=== PATIENT | female | born 1995 | race Caucasian/White ===

== ENCOUNTER 2018-07-16 23:05 | Emergency (ER) | payer MEDICAID, OTHER ==
[~2018-07-16] VITALS: Ht 157.5 cm; Wt 51.7 kg
[~2018-07-16 23:05] MED LIST: BENZ56AE TP; CLIN-62 PO; CLIN300C3 PO; Ibuprofen PO; PREN-115 PO; PREN1TAB14 PO
--- NOTE | 2018-07-16 23:45 | ED Abdominal Pain ---
General Chief Complaint: Abdominal/GI Problems Stated Complaint: PELVIC PAIN Source of Information: Patient Exam Limitations: No Limitations History of Present Illness Date Seen by Provider: Jul 16, 2018 Time Seen by Provider: 23:24 Initial Comments The patient presents to the ER by private conveyance with chief complaint that for the past couple weeks she's had progressively worsening discomfort in her right inguinal region with a little bulge worse when she lifts. Her massage therapist told her that she thought it might be a hernia and so she got to get it checked out. She says only been minimally irritating until tonight was getting bad enough pain that she decided to come get it checked out at the ER. She's having normal bowel movements had one earlier today. No fevers chills cough shortness of breath abdominal pain otherwise nausea vomiting or diarrhea. She's had STD checks about an 4 months ago that were all negative at [facility]. She is having no dysuria or dyspareunia. She is not up-to-date on her Pap smear. No significant medical or surgical history except for tubal ligation. Allergies and Home Medications Allergies Coded Allergies: No Known Drug Allergies (Unverified , 05/17/13) Home Medications Clindamycin Hcl 300 Mg Capsule, 1 EACH PO QID Prescribed by: HARITHA REYNA on 09/04/142100 Vits W-Ca,Fe,Fa(<1MG) 1 Each Tablet, 1 EACH PO DAILY, (Reported) Patient Home Medication List Home Medication List Reviewed: Yes Review of Systems Review of Systems Constitutional: No chills, No diaphoresis EENTM: No Blurred Vision, No Double Vision Respiratory: Denies Cough, Denies Shortness of Air Cardiovascular: Denies Chest Pain, Denies Edema Gastrointestinal: Denies Constipated, Denies Diarrhea, Denies Nausea, Denies Vomiting Genitourinary: Denies Discharge, Denies Drainage Musculoskeletal: No back pain, No joint pain Skin: No pruritus Past Nwhbqka-Jeusjt-Eiwnop Hx Patient Social History Alcohol Use: Denies Use Recreational Drug Use: No Smoking Status: Current Everyday Smoker Type Used: Cigarettes 2nd Hand Smoke Exposure: Yes Recent Foreign Travel: No Contact w/Someone Who Travel: No Recent Hopitalizations: No Physical Abuse: No Sexual Abuse: No Mistreated: No Fear: No Immunizations Up To Date Tetanus Booster (TDap): More than 5yrs Date of Influenza Vaccine: Jun 21, 2014 Seasonal Allergies Seasonal Allergies: No Past Medical History Surgeries: Yes (Stephenson teeth extraction with local ) Respiratory: No Cardiac: No Neurological: Yes (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 Physical Exam Vital Signs Capillary Refill : Height/Weight/BMI Height: 5'2" Weight: 130lbs. oz. [id number]; BMI Method:Stated General Appearance: WD/WN, no apparent distress HEENT: PERRL/EOMI, pharynx normal Respiratory: no respiratory distress, no accessory muscle use Peripheral Pulses: 2+ Radial Pulses (R), 2+ Radial Pulses (L) Gastrointestinal: normal bowel sounds, non tender, soft, other (right inguinal has small palpable her old chart as she flexes her anterior rectus muscles.) Progress/Results/Core Measures Progress Progress Note : Time: 23:42 Progress Note Recommend Tylenol, Motrin and heat and follow-up with Gen. surgery to consider anginal repair. We have counseled her on appropriate lifting considerations. Departure Impression Primary Impression: Right inguinal hernia Disposition: 01 HOME, SELF-CARE Condition: Stable Departure-Patient Inst. Decision time for Depature: 23:44 Referrals: [facility] [place] (PCP/Family) Primary Care Physician LEONCIO OROURKE DO Patient Instructions: Groin Hernia (DC) Add. Discharge Instructions: Use proper lifting techniques. If you're doing something that hurts then stop doing that. Use Tylenol 1000 mg and/or ibuprofen 800 mg in addition to heat applied directly over the site as needed for pain relief. Follow up with the surgeon by calling his clinic and request an appointment. Follow-up with your primary care provider or [facility] to get up-to-date on your Pap smears. All discharge instructions reviewed with patient and/or family. Voiced understanding. Copy Copies To 1: SHEREEN PAVON DO; LEONCIO OROURKE TITUS J Jul 16, 2018 23:45
[2018-07-16 23:58] VITALS: BP 108/69
== END 2018-07-16 23:58 | disposition home or self-care (01) ==
LOC: EDUNIT# 23:05 → ER 23:08
DX: K40.90 Unilateral inguinal hernia, without obstruction or gangrene, not specified as recurrent (principal); G43.909 Migraine, unspecified, not intractable, without status migrainosus; F31.9 Bipolar disorder, unspecified; F90.9 Attention-deficit hyperactivity disorder, unspecified type; F17.210 Nicotine dependence, cigarettes, uncomplicated
CPT/HCPCS: 99282